=== PATIENT | female | born 1990 | race Caucasian/White ===

== ENCOUNTER 2024-06-15 11:06 | Outpatient (REF) | payer MEDICAID, SELFPAY ==
[2024-06-18 10:19] LABS: RPR Rapid Plasma Reagin NON-REACTIVE (NON-REACTIVE)
== END 2024-06-15 11:07 | disposition home or self-care (01) ==
LOC: HO.HHCL 11:06
PROVIDERS: Visit Provider Family Medicine
DX: R21 Rash and other nonspecific skin eruption (principal)
CPT/HCPCS: 36415; 86592